=== PATIENT | female | born 1980 | race Caucasian/White ===

== ENCOUNTER 2017-10-01 08:26 | Emergency (ER) | payer MEDICARE, MEDICAID, SELFPAY ==
[2017-10-01 08:35] VITALS: BP 158/99; PULSE 106; RESP 22; TEMP 37.4; O2SAT 98; BMI 49.9
--- NOTE | 2017-10-01 08:51 | ED.URI ---
HPI - URI/Sore Throat General Chief Complaint: Upper Respiratory Symptoms Stated Complaint: COUGH History of Present Illness HPI Narrative: HPI 36-year-old female with a history of asthma and bipolar disorder presents for evaluation of 4-5 days of cough, rhinorrhea, sore throat, and mild malaise. Denies rash, neck stiffness, headache, changes in vision or hearing, or ear pain. Denies chest pain, shortness of breath, fevers, chills, history of DVT, PE, estrogen usage, coughing up blood, malignancy. M/S/F/SocHx notable for: please see HPI; remainder reviewed with patient and in chart. ROS: Negative constitutional, eye, cardiovascular, pulmonary, GI, , MSK, skin, neurologic, psychiatric, endocrine unless noted in the HPI. Exam Gen: Pleasant, non-toxic appearing, resting comfortably. HEENT: Normocephalic, atraumatic. * Ears - TMs clear bilaterally, bilateral external auditory canals without erythema, inflammation, or swelling, bilateral mastoids nontender without overlying erythema, swelling, or warmth. * Eyes - Bilateral eyes without injection, swelling, or discharge, no proptosis or periorbital erythema, swelling, warmth, or tenderness. * Mouth - Anterior oropharynx with MMM, no lesions appreciated, floor of the mouth is soft and without swelling. Posterior oropharynx with mild erythema but without swelling, exudate, lesions, uvula midline. * Nose - Nares with scant crusting and discharge. * Neck - Neck supple without posterior anterior cervical chain lymphadenopathy bilaterally. Resp: Clear to auscultation bilaterally, normal work of breathing without accessory muscle usage.Infrequent mildly productive cough observed. Card: Regular rate and rhythm with no murmurs, rubs or gallops. Extremities warm and well perfused. Vascular: both calves of equal size and nontender to palpation bilaterally. GI: Non-tender to palpation throughout all quadrants, no masses or organomegaly appreciated. : Deferred MSK: No visible deformities, strength and tone without visually appreciable deficit. Neuro: AO x 3, no facial asymmetry, vision and hearing WNL. Heme/Lymph: Deferred Skin: Normal color with no visible lesions (other than noted above). Psych: Mood and affect appropriate. MDM Previous chart, nursing note, and vitals reviewed. A: 36-year-old female with a history of asthma and bipolar disorder presents for evaluation of 4-5 days of cough, rhinorrhea, sore throat, and mild malaise. DDx: viral rhinosinusitis, bacterial rhinosinusitis, pharyngitis (HSV vs viral NOS vs GAS vs bacterial NOS)], EBV, peritonsillar cellulitis, VEHICLE OPERATOR TECHNICIAN, RPA, Rakesh's angina, epiglottitis. Evaluation: Overall presentation most consistent with a viral rhinosinutisis, given the duration of symptoms and overall well compensated appearance, antibiotic treatment is not currently indicated, rapid strep not indicated, oral mucosa without lesions consistent with HSV or candidiasis, low suspicion for peritonsillar cellulitis or abscess given the absence of asymmetric swelling or uvular deviation, RPA is unlikely as the patient can comfortably flex and extend their neck and swallow without difficulty. As phonation is intact and breathing is unlabored doubt epiglottitis. The floor of the mouth is without evidence of Rakesh's angina. Lemierre's disease was considered but as the patient does not have signs of VEHICLE OPERATOR TECHNICIAN or sepsis, further evaluation was not indicated. ED Course: No clinically significant changes. Disposition: Discharge with return to care as needed. Return to care indications provided. Patient does not have a spacer for her albuterol inhaler, this was prescribed. Impression: Rhinosinusitis. (please reference below for remainder of encounter information) Related Data Home Medications Medication Instructions Recorded Confirmed albuterol sulfate [Ventolin HFA] See Label Instructions .ROUTE 07/17/16 10/01/17 .COMPLEX #0 omeprazole 40 mg PO QDAY #0 07/17/16 sertraline [Zoloft] #0 07/17/16 Previous Rx's Medication Instructions Recorded meloxicam [Mobic] 7.5 mg PO BIDCC PRN #20 tab 07/17/16 penicillin V potassium 500 mg PO Q6H #40 tab 07/17/16 Allergies Allergy/AdvReac Type Severity Reaction Status Date / Time No Known Drug Allergies Allergy Verified 10/01/17 08:38 PFSH Social History Smoking Status: Former smoker Discharge Plan Departure Prescriptions: No Action omeprazole 40 MG capsule,delayed release(DR/EC) 40 mg PO QDAY Qty: 0 RF: 0 sertraline [Zoloft] 25 MG tablet Qty: 0 RF: 0 albuterol sulfate [Ventolin HFA] 90 MCG/PUFF HFA aerosol inhaler See Label Instructions .ROUTE .COMPLEX Qty: 0 RF: 0 meloxicam [Mobic] 7.5 MG tablet 7.5 mg PO BIDCC PRNQty: 20 RF: 0 penicillin V potassium 500 MG tablet 500 mg PO Q6H Qty: 40 RF: 0
== END 2017-10-01 09:21 | disposition home or self-care (01) ==
LOC: ED 09:37
PROVIDERS: Emergency Provider Emergency Medicine; PCP Family Medicine
DX: J32.9 Chronic sinusitis, unspecified (principal)
CPT/HCPCS: 99282

== ENCOUNTER → 2018-06-12 18:52 | Outpatient (CLI) | payer MEDICARE, MEDICAID, SELFPAY ==
[2018-06-12 19:29] LABS: Influenza A and B by PCR Rapid Negative (Negative)
== END ==
PROVIDERS: PCP Family Medicine; Visit Provider Physician Assistant
DX: R68.89 Other general symptoms and signs (principal)
CPT/HCPCS: 87400

== ENCOUNTER 2023-01-13 15:08 | Emergency (ER) | payer OTHER, MEDICAID, SELFPAY ==
[2023-01-13 15:29] VITALS: BP 149/102; PULSE 117; RESP 18; TEMP 36.3; O2SAT 98; BMI 48.2
--- NOTE | 2023-01-13 20:06 | ED_ITS ---
HPI - Recheck/Abnormal Lab/Rx General Chief Complaint: Recheck/Abnormal Lab/Rx Stated Complaint: Ref for IV antibiotics Time Seen by Provider: 01/13/23 19:53 Source: patient Mode of arrival: Ambulatory Limitations: no limitations History of Present Illness HPI narrative: Patient is a 42-year-old female. She was sent by her primary physician dental ceramist assistant for IV antibiotics. She has had a area of infection on the back of her left lower leg for several weeks. She is been on 2 courses of Keflex. She was seen again today by her primary physician dental ceramist assistant and was given a prescription for doxycycline. She is yet to start this. She also has a referral to see Dermatology. She states that the Keflex is not help the symptoms at all. Patient states that the wound was cultured and it was MRSA. She was sent to the emergency department for IV antibiotics. Related Data Home Medications Medication Instructions Recorded Confirmed albuterol sulfate 90 mcg/actuation See Rx Instructions .Route 07/17/16 06/12/18 aerosol inhaler (Ventolin HFA) .COMPLEX ##0 omeprazole 40 mg capsule,delayed 40 mg PO QDAY ##0 07/17/16 06/12/18 release sertraline 25 mg tablet (Zoloft) ##0 07/17/16 06/12/18 Previous Rx's Medication Instructions Recorded meloxicam 7.5 mg tablet (Mobic) 7.5 mg PO BIDCC PRN #20 tabs 07/17/16 inhalational spacing device #1 ea 10/01/17 (Aerochamber MV spacer) mupirocin 2 % topical ointment 1 applic topical BID #15 grams 01/13/23 Allergies Allergy/AdvReac Type Severity Reaction Status Date / Time No Known Drug Allergies Allergy Verified 01/13/23 15:35 Review of Systems Constitutional Constitutional: Reports system reviewed and no additional complaints, except as documented Musculoskeletal Musculoskeletal: Reports system reviewed and no additional complaints, except as documented Integumentary/Breasts Skin/Breast: Reports system reviewed and no additional complaints, except as documented Neurologic Neurologic: Reports system reviewed and no additional complaints, except as documented Patient History Social History Smoking Status: Current every day smoker Smoking Status: Current every day smoker alcohol intake frequency: 0-2 drinks per day Substance Use Type: does not use Exam Initial Vital Signs Initial Vital Signs: Vital Signs Temperature 97.3 F L 01/13/23 15:29 Pulse Rate 117 H 01/13/23 15:29 Respiratory Rate 18 01/13/23 15:29 Blood Pressure 149/102 H 01/13/23 15:29 Pulse Oximetry 98 01/13/23 15:29 Oxygen Delivery Method Room Air 01/13/23 15:29 Const General: cooperative, comfortable and No ill appearing [facility] Head: normal to inspection and normocephalic Skin Other: Patient has a area on the posterior aspect of her left lower extremity. It is approximately 3 cm x 2 cm. There is a 1 cm x 1 cm ulceration. There is a small amount of erythema surrounding this area. No active drainage. Extrem Other: Small ulceration on the posterior aspect of the left leg. Course Vital Signs Vital signs: Vital Signs - 8 hr 01/13/23 20:15 Pulse Rate 113 H Respiratory Rate 16 Blood Pressure 142/102 H Pulse Oximetry 99 MDM - Recheck/Abnormal Lab/Rx MDM Narrative Medical decision making narrative: Patient is not septic. There is no signs of abscess. Patient does have a small ulceration in the area with some surrounding erythema. I am not surprised if she is positive for MRSA that the Keflex was not helpful. The doxycycline should be helpful. She is yet to start this. There is no indication for IV antibiotics today. She is not septic. She is very well-appearing. Explained this to the patient. Advised that she take the doxycycline as directed and contact the precast concrete products installer for which he received a referral for today. She was given return precautions. Discharge Plan Departure Patient Disposition: Home Clinical Impression: Cellulitis Instructions: Cellulitis Activity Restrictions/Additional Instructions: I do recommend that you use the doxycycline as directed. I also recommend that you contact the dermatology group at the number that you already have to schedule follow-up appointment. Return to the emergency department for new symptoms. Prescriptions: New mupirocin 2 % ointment 1 applic topical BID Qty: 15 0RF No Action omeprazole 40 MG capsule,delayed release(DR/EC) 40 mg PO QDAY Qty: 0 sertraline [Zoloft] 25 MG tablet Qty: 0 albuterol sulfate [Ventolin HFA] 90 MCG/PUFF HFA aerosol inhaler See Rx Instructions .ROUTE .COMPLEX Qty: 0 Rx Instructions: per provider instructions meloxicam [Mobic] 7.5 MG tablet 7.5 mg PO BIDCC PRNQty: 20 0RF (DME) inhalational spacing device [Aerochamber MV] spacer See Dose Instructions .ROUTE .MEDSUPPLY Qty: 1 0RF Dose Instruction: As directed Rx Instructions: As directed Referrals: Graham Mar MD [Primary Care Provider] - Stand Alone Forms: Patient Portal/API
[2023-01-13 20:15] VITALS: BP 142/102; PULSE 113; RESP 16; O2SAT 99
== END 2023-01-13 20:13 | disposition home or self-care (01) ==
PROVIDERS: Emergency Provider Emergency Medicine; PCP Family Medicine
DX: L03.116 Cellulitis of left lower limb (principal)
CPT/HCPCS: 99281; 99283

== ENCOUNTER 2024-08-21 14:32 | Emergency (ER) | payer OTHER, MEDICAID, SELFPAY ==
[2024-08-21 14:34] VITALS: BP 148/93; PULSE 97; RESP 18; TEMP 35.7; O2SAT 96; BMI 50.2
--- NOTE | 2024-08-21 14:39 | DI.RAD.S_ITS ---
PROCEDURE: XR HUMERUS RT 2V INDICATIONS: Pt fell on Right arm; pain from clavicle down. TECHNIQUE: 2 views of the humerus were acquired. COMPARISON: None. FINDINGS: Bones: No fractures or dislocations. No suspicious bony lesions. Soft tissues: No suspicious soft tissue calcifications. IMPRESSION: No acute bony abnormality. Dictated by: Gage Flores M.D. on 08/21/2024 at 15:35 Approved by: Gage Flores M.D. on 08/21/2024 at 15:35
--- NOTE | 2024-08-21 14:39 | DI.RAD.S_ITS ---
PROCEDURE: XR FOREARM RT 2V INDICATIONS: Pt fell on Right arm; pain from clavicle down. TECHNIQUE: 2 views of the forearm were acquired. COMPARISON: None. FINDINGS: Bones: No fractures or dislocations. No suspicious bony lesions. Soft tissues: No suspicious soft tissue calcifications or masses. IMPRESSION: No acute bony abnormality. Dictated by: Gage Flores M.D. on 08/21/2024 at 15:34 Approved by: Gage Flores M.D. on 08/21/2024 at 15:34
--- NOTE | 2024-08-21 14:39 | DI.RAD.S_ITS ---
PROCEDURE: XR SHOULDER RT MIN 2V INDICATIONS: Pt fell on Right arm; pain from clavicle down. TECHNIQUE: 3 views of the shoulder were acquired. COMPARISON: [facility], , SHOULDER MINIMUM 2 VIEW LEFT, 07/30/2014, 20:15. FINDINGS: Bones: No fractures or dislocations. No suspicious bony lesions. Visualized ribs appear intact. Supraspinatus calcification. Acromioclavicular joint space narrowing with osteophytosis. Soft tissues: No suspicious soft tissue calcifications. IMPRESSION: No acute bony abnormality. Dictated by: Gage Flores M.D. on 08/21/2024 at 15:33 Approved by: Gage Flores M.D. on 08/21/2024 at 15:33
--- NOTE | 2024-08-21 14:39 | DI.RAD.S_ITS ---
PROCEDURE: XR CLAVICLE RT INDICATIONS: Pt fell on Right arm; pain from clavicle down. TECHNIQUE: 2 views of the clavicle were acquired. COMPARISON: None. FINDINGS: Bones: No fractures or dislocations. No suspicious bony lesions. Soft tissues: No suspicious soft tissue calcifications. IMPRESSION: No acute bony abnormality. Dictated by: Gage Flores M.D. on 08/21/2024 at 15:33 Approved by: Gage Flores M.D. on 08/21/2024 at 15:34
--- NOTE | 2024-08-21 14:39 | DI.RAD.S_ITS ---
PROCEDURE: XR ELBOW RT MIN 3V INDICATIONS: Pt fell on Right arm; pain from clavicle down. TECHNIQUE: 3 views of the elbow were acquired. COMPARISON: None. FINDINGS/IMPRESSION: Intra-articular fracture of the radial head, with large joint effusion. Dictated by: Gage Flores M.D. on 08/21/2024 at 15:32 Approved by: Gage Flores M.D. on 08/21/2024 at 15:33
--- NOTE | 2024-08-21 16:28 | ED.UPPEXIN ---
HPI - Extremity Injury (Upper) <Elias Gonzalez PA-C - Last Filed: 08/21/24 17:22> General Chief Complaint: Extremity Injury, Upper Stated Complaint: rt arm injury, landed on some wood Time Seen by Provider: 08/21/24 15:54 Source: patient Mode of arrival: Ambulatory History of Present Illness HPI narrative: this is a 43-year-old female presenting to the emergency department due to right upper extremity pain after having a mechanical fall when she tripped over some wood this morning landing on her right side. She was complaining of right shoulder, right elbow, right humerus, right hand, and right wrist pain denies any numbness. Did not hit her head or lose conscious. Related Data Home Medications Medication Instructions Recorded Confirmed albuterol sulfate 90 mcg/actuation See Rx Instructions .Route 07/17/16 06/12/18 aerosol inhaler (Ventolin HFA) .COMPLEX ##0 omeprazole 40 mg capsule,delayed 40 mg PO QDAY ##0 07/17/16 06/12/18 release sertraline 25 mg tablet (Zoloft) ##0 07/17/16 06/12/18 Previous Rx's Medication Instructions Recorded meloxicam 7.5 mg tablet (Mobic) 7.5 mg PO BIDCC PRN #20 tabs 07/17/16 inhalational spacing device #1 ea 10/01/17 (Aerochamber MV spacer) mupirocin 2 % topical ointment 1 applic topical BID #15 grams 01/13/23 oxycodone 5 mg capsule 5 mg PO Q8H PRN pain #20 caps 08/21/24 Allergies Allergy/AdvReac Type Severity Reaction Status Date / Time No Known Drug Allergies Allergy Verified 01/13/23 15:35 Review of Systems <Elias Gonzalez PA-C - Last Filed: 08/21/24 17:22> Review of Systems Narrative: GENERAL: Denies chills, fatigue, malaise, fever, sweats. HEENT: Denies sinus pain, ear pain, sore throat, difficulty swallowing, dizziness. RESPIRATORY: Denies dyspnea, cough, wheezing, hemoptysis, sputum. CARDIOVASCULAR: Denies chest pain, palpitations, orthopnea, edema, GASTROINTESTINAL: Denies nausea, vomiting, abdominal pain, diarrhea, constipation, melena. : Denies dysuria, frequency, incontinence, hematuria, urinary retention. MUSCULOSKELETAL: Reports right upper extremity pain SKIN: Denies rash, skin lesions, or other NEUROLOGIC: Denies weakness, headache, numbness, change in speech, confusion, seizures, incoordination. PSYCHIATRIC: No concerning psychosocial issues. 12 point review of systems is negative except for those stated above Patient History <Elias Gonzalez PA-C - Last Filed: 08/21/24 17:22> Social History Smoking Status: Former smoker Smoking Status: Former smoker tobacco type: cigarettes alcohol intake frequency: 0-2 drinks per day Exam <Elias Gonzalez PA-C - Last Filed: 08/21/24 17:22> Narrative Exam Narrative: GENERAL: Well-developed patient, in mild distress. HEAD: Atraumatic. Normocephalic. EYES: Pupils equal round and reactive. Extraocular motions intact. No scleral icterus. No injection or drainage. ENT: Nose without bleeding, purulent drainage. Throat without erythema, tonsillar hypertrophy or exudate. Airway patent. NECK: Trachea midline. Non tender EXTREMITIES: generalized tenderness to palpation throughout the right upper extremity and clavicle although primarily tender of the right elbow. Range motion of the elbow decreased secondary to pain. No changes in the range of motion of the distal wrist and fingers and hand. 2+ radial pulse. NEURO: AOx3. SKIN: No rash or erythema of visible areas Initial Vital Signs Initial Vital Signs: Vital Signs Temperature 96.3 F L 08/21/24 14:34 Pulse Rate 97 H 08/21/24 14:34 Respiratory Rate 18 08/21/24 14:34 Blood Pressure 148/93 H 08/21/24 14:34 Pulse Oximetry 96 08/21/24 14:34 Oxygen Delivery Method Room Air 08/21/24 14:34 <Cinthya Feliciano DO - Last Filed: 08/22/24 09:22> Initial Vital Signs Initial Vital Signs: Vital Signs Temperature 96.3 F L 08/21/24 14:34 Pulse Rate 97 H 08/21/24 14:34 Respiratory Rate 18 08/21/24 14:34 Blood Pressure 148/93 H 08/21/24 14:34 Pulse Oximetry 96 08/21/24 14:34 Oxygen Delivery Method Room Air 08/21/24 14:34 Procedures <Elias Gonzalez PA-C - Last Filed: 08/21/24 17:22> Orthopedic Splinting/Casting Injury #1: Time of procedure: 17:12 Side: right Upper Extremity Injury Location: elbow Upper Extremity Immobilizer: posterior splint Post splinting neuro exam: intact Post splinting vascular exam: intact Placed by: Nursing Additional Comments: long-arm splint Course <Elias Gonzalez PA-C - Last Filed: 08/21/24 17:22> Orders Ordered: Discontinued Medications Acetaminophen (Acetaminophen 325 Mg Tablet) 650 mg PO NOW ONE Stop: 08/21/24 16:40 Last Admin: 08/21/24 16:51 Dose: 650 mg Documented By: GOLD Ibuprofen (Ibuprofen 600 Mg Tablet) 600 mg PO NOW ONE Stop: 08/21/24 16:40 Last Admin: 08/21/24 16:51 Dose: 600 mg Documented By: GOLD Vital Signs Vital signs: Vital Signs - 8 hr 08/21/24 14:34 Temperature 96.3 F L Pulse Rate 97 H Respiratory Rate 18 Blood Pressure 148/93 H Pulse Oximetry 96 Oxygen Delivery Method Room Air <Cinthya Feliciano DO - Last Filed: 08/22/24 09:22> Orders Ordered: Discontinued Medications Acetaminophen (Acetaminophen 325 Mg Tablet) 650 mg PO NOW ONE Stop: 08/21/24 16:40 Last Admin: 08/21/24 16:51 Dose: 650 mg Documented By: GOLD Ibuprofen (Ibuprofen 600 Mg Tablet) 600 mg PO NOW ONE Stop: 08/21/24 16:40 Last Admin: 08/21/24 16:51 Dose: 600 mg Documented By: GOLD Vital Signs Vital signs: Vital Signs - 8 hr 08/21/24 14:34 Temperature 96.3 F L Pulse Rate 97 H Respiratory Rate 18 Blood Pressure 148/93 H Pulse Oximetry 96 Oxygen Delivery Method Room Air MDM - Extremity Injury (Upper) <Elias Gonzalez PA-C - Last Filed: 08/21/24 17:22> Imaging Data Extremity x-ray #1: My Impression: [address] [address] XRay Report Signed Patient: Carolina Smith MR#: [id number] : 1980 Acct:[id number] Age/Sex: 43 / F Date of Service: 08/21/24 Loc: ED Accession Number: [id number] Procedure: XR clavicle RT Ordering Provider: Cinthya Feliciano D.O. PROCEDURE: XR CLAVICLE RT INDICATIONS: Pt fell on Right arm; pain from clavicle down. TECHNIQUE: 2 views of the clavicle were acquired. COMPARISON: None. FINDINGS: Bones: No fractures or dislocations. No suspicious bony lesions. Soft tissues: No suspicious soft tissue calcifications. IMPRESSION: No acute bony abnormality. Dictated by: Gage Flores M.D. on 08/21/2024 at 15:33 Approved by: Gage Flores M.D. on 08/21/2024 at 15:34 =- [place] [address] XRay Report Signed Patient: Carolina Smith MR#: [id number] : 1980 Acct:[id number] Age/Sex: 43 / F Date of Service: 08/21/24 Loc: ED Accession Number: [id number] Procedure: XR elbow RT min 3V Ordering Provider: Cinthya Feliciano D.O. PROCEDURE: XR ELBOW RT MIN 3V INDICATIONS: Pt fell on Right arm; pain from clavicle down. TECHNIQUE: 3 views of the elbow were acquired. COMPARISON: None. FINDINGS/IMPRESSION: Intra-articular fracture of the radial head, with large joint effusion. Dictated by: Gage Flores M.D. on 08/21/2024 at 15:32 Approved by: Gage Flores M.D. on 08/21/2024 at 15:33 [place] [address] XRay Report Signed Patient: Carolina Smith MR#: [id number] : 1980 Acct:[id number] Age/Sex: 43 / F Date of Service: 08/21/24 Loc: ED Accession Number: [id number] Procedure: XR humerus RT 2V Ordering Provider: Cinthya Feliciano D.O. PROCEDURE: XR HUMERUS RT 2V INDICATIONS: Pt fell on Right arm; pain from clavicle down. TECHNIQUE: 2 views of the humerus were acquired. COMPARISON: None. FINDINGS: Bones: No fractures or dislocations. No suspicious bony lesions. Soft tissues: No suspicious soft tissue calcifications. IMPRESSION: No acute bony abnormality. Dictated by: Gage Flores M.D. on 08/21/2024 at 15:35 Approved by: Gage Flores M.D. on 08/21/2024 at 15:[address] [address] XRay Report Signed Patient: Carolina Smith MR#: [id number] : 1980 Acct:[id number] Age/Sex: 43 / F Date of Service: 08/21/24 Loc: ED Accession Number: [id number] Procedure: XR shoulder RT min 2V Ordering Provider: Cinthya Feliciano D.O. PROCEDURE: XR SHOULDER RT MIN 2V INDICATIONS: Pt fell on Right arm; pain from clavicle down. TECHNIQUE: 3 views of the shoulder were acquired. COMPARISON: [facility], , SHOULDER MINIMUM 2 VIEW LEFT, 07/30/2014, 20:15. FINDINGS: Bones: No fractures or dislocations. No suspicious bony lesions. Visualized ribs appear intact. Supraspinatus calcification. Acromioclavicular joint space narrowing with osteophytosis. Soft tissues: No suspicious soft tissue calcifications. IMPRESSION: No acute bony abnormality. Dictated by: Gage Flores M.D. on 08/21/2024 at 15:33 Approved by: Gage Flores M.D. on 08/21/2024 at 15:[address] [address] XRay Report Signed Patient: Carolina Smith MR#: [id number] : 1980 Acct:[id number] Age/Sex: 43 / F Date of Service: 08/21/24 Loc: ED Accession Number: [id number] Procedure: XR forearm RT 2V Ordering Provider: Cinthya Feliciano D.O. PROCEDURE: XR FOREARM RT 2V INDICATIONS: Pt fell on Right arm; pain from clavicle down. TECHNIQUE: 2 views of the forearm were acquired. COMPARISON: None. FINDINGS: Bones: No fractures or dislocations. No suspicious bony lesions. Soft tissues: No suspicious soft tissue calcifications or masses. IMPRESSION: No acute bony abnormality. MDM Narrative Medical decision making narrative: ED course: This is a 43-year-old female presenting to the emergency department after a mechanical ground level fall sustaining a right sided radial head fracture. This was discussed with the on-call orthopedist, Dr. Dodge, agree with the plan for nonweightbearing, long-arm splint, and to follow up in her office. Patient was neurovascularly intact throughout the course of this visit. Recommended to be nonweightbearing and follow up with Orthopedics. CC: Right elbow pain Complicating co-morbidities: none Data collected from: Previous notes Medical records reviewed: Paste she was last seen in this emergency department a year and a half ago due to needing IV antibiotics. No pertinent medical history. Differential considered, but not limited to: fracture, neurovascular injury, contusion Exam documented above, pertinent findings include: neurovascularly intact throughout, tenderness to palpation at the right elbow Lab Test results independently reviewed as above. Pertinent findings: none obtained Imaging studies independently reviewed: x-ray showed intra-articular right radial head fracture Scores Used: None MIPS Elements: None Consultations: None Treatments: long-arm splint placed Re-evaluations: neurovascularly intact post splint placement Discussion: Discussed plan with the patient was comfortable with the plan Diagnosis: radial head fracture Disposition: see below, along with detailed discharge instructions that have been reviewed with patient as well as indications for ED re-evaluation and additional outpatient follow up Discharge Plan Departure Patient Disposition: Home Clinical Impression: Closed fracture of radial head Instructions: DI for Elbow Fracture Activity Restrictions/Additional Instructions: Thank you for coming to the [facility] Emergency Department today. as we discussed you have a fracture elbow. We have placed you in a splint. Please do not bear any weight through right upper extremity. Please follow up with the orthopedist office for further evaluation management. You may call them on Thursday to discuss follow up. I recommend ibuprofen Tylenol as needed for the pain but you may use the oxycodone prescribed for any breakthrough pain. Please return to the emergency department if you develop any Significant new numbness, severe pain, or any other concerning signs or symptoms. I hope you feel better soon. Please follow up with your primary care provider within a week if your symptoms continue. If you do not have a primary care provider please contact the [facility] Resource line at [phone]. They will ask some questions about your medical history and help you get set up with a provider in the community. Prescriptions: New oxycodone 5 mg capsule 5 mg PO Q8H PRN (Reason: pain) Qty: 20 0RF No Action omeprazole 40 MG capsule,delayed release(DR/EC) 40 mg PO QDAY Qty: 0 sertraline [Zoloft] 25 MG tablet Qty: 0 albuterol sulfate [Ventolin HFA] 90 MCG/PUFF HFA aerosol inhaler See Rx Instructions .ROUTE .COMPLEX Qty: 0 Rx Instructions: per provider instructions meloxicam [Mobic] 7.5 MG tablet 7.5 mg PO BIDCC PRNQty: 20 0RF mupirocin 2 % ointment 1 applic topical BID Qty: 15 0RF (DME) inhalational spacing device [Aerochamber MV] spacer See Dose Instructions .ROUTE .MEDSUPPLY Qty: 1 0RF Dose Instruction: As directed Rx Instructions: As directed Referrals: Graham Mar MD [Primary Care Provider] - Lexis Dodge MD [Physician] - ( follow up regarding intra-articular right radial head fracture. Thank you very much!) Stand Alone Forms: Patient Portal/API/Survey ED Sign-out <Cinthya Feliciano DO - Last Filed: 08/22/24 09:22> Cosign ED Attending Campbell Attestation: I was immediately available in the department for consultation.
[2024-08-21] MEDS: IBUPROFEN 600 MG TABLET PO (16:51)
[2024-08-21] MEDS: ACETAMINOPHEN 325 MG TABLET 650 MG PO (16:51)
[2024-08-21 18:00] VITALS: BP 155/72; PULSE 71; RESP 18; TEMP 36.8; O2SAT 96
== END 2024-08-21 18:00 | disposition home or self-care (01) ==
PROVIDERS: Emergency Provider Physician Assistant Medical; PCP Family Medicine
DX: S52.121A Displaced fracture of head of right radius, initial encounter for closed fracture (principal); W01.0XXA Fall on same level from slipping, tripping and stumbling without subsequent striking against object, initial encounter
CPT/HCPCS: 29105; 73000; 73030; 73060; 73080; 73090; 99283